=== PATIENT | male | born 1955 | race Caucasian/White ===

== ENCOUNTER 2016-10-12 18:40 | Emergency (ER) | payer OTHER ==
--- NOTE | 2016-10-12 18:53 | PCM.SN ---
- Free Text/Narrative Note: Called to the ER for Code Blue. On arrival CPR is in progress with WAYNE assist device and manual BVM respirations with OA in place. Dr Banks performed immediate evaluation and Code was called at 1842.
--- NOTE | 2016-10-13 05:19 | EDM.PDOC ---
ED HPI GENERAL MEDICAL PROBLEM - General Chief Complaint: CPR in Progress Stated Complaint: PASSED OUT AT WORK Time Seen by Provider: 10/12/16 19:01 Source of Information: Reports: Patient History Limitations: Reports: No Limitations - History of Present Illness INITIAL COMMENTS - FREE TEXT/NARRATIVE: History of present illness: []Prior to arrival, CPR was begun on scene after a witnessed 5 minute downtime, ambulance crew obtained an IO and started CPR with a Lukas device and giving 5 rounds of epinephrine. Volunteer medics bagged during transport. They reported that during the approximately 45 minute transport they did several checks of his rhythm and he continued to be in asystole, however continued the Lukas compressions until arrival. On arrival patient's lungs revealed bilateral breath sounds with bagging, Lukas was paused patient remained in asystole. He was noted to be pale with fixed and dilated pupils. Given the duration of this code and the time in asystole patient was pronounced at 18:42 Review of systems: As per history of present illness and below otherwise all systems reviewed and negative. Past medical history: As per history of present illness and as reviewed below otherwise noncontributory. Surgical history: As per history of present illness and as reviewed below otherwise noncontributory. Social history: No reported history of drug or alcohol abuse. Family history: As per history of present illness and as reviewed below otherwise noncontributory. Physical exam: General: Well developed, well nourished in NAD HEENT: Atraumatic, normocephalic, pupils fixed and dilated, Lungs: Clear to auscultation with bagging Heart: Asystole on the monitor Abdomen: Soft, nondistended, Extremities: Atraumatic, Neuro: Unresponsive Diagnostics: []Monitor Showing asystole Therapeutics: [] Impression: Cardiopulmonary arrest Plan: []Patient's was notified she is 6 hours away and is planning on coming to [place]. Definitive disposition and diagnosis as appropriate pending reevaluation and review of above. Treatments EDGE GLUER: Reports: IV/IO, Other (see below) Other Treatments EDGE GLUER: Epinephrine x 5 dose - Related Data Allergies Allergy/AdvReac Type Severity Reaction Status Date / Time Unable to Assess Allergy Unverified 10/12/16 19:00 Home Meds: Home Meds . [Unable to Verify Home Med List] 06/07/17 [History] ED ROS GENERAL - Review of Systems Review Of Systems: Unable To Obtain ED EXAM, CPR - Physical Exam Exam: See Below (See history of present illness) Course - Vital Signs Last Recorded V/S: Last Vital Signs Temp 35.2 C 10/12/16 18:49 Pulse Resp BP Pulse Ox Departure - Departure Time of Disposition: 18:45 Disposition: 20 Clinical Impression: Cardiopulmonary arrest - Discharge Information Referrals: PCP,Unknown [Primary Care Provider] - Forms: ED Department Discharge
== END 2016-10-13 06:51 | disposition expired ==
LOC: MW.ED 18:40
DX: I46.9 Cardiac arrest, cause unspecified (principal)
CPT/HCPCS: 99283; 99285